=== PATIENT | male | born 1965 | race Caucasian/White ===

== ENCOUNTER 2020-09-25 12:43 | Emergency (ER) | payer BC ==
[2020-09-25] MEDS ORDERED: Lidocaine 1% with EPINEPHrine 1:100,000 50 ML MDV SUBCUT STA (13:19)
[2020-09-25] MEDS ORDERED: Diphtheria,Pertussis(Acell),Tetanus Vaccine 0.5 ML Syringe IM ONE (13:19)
[2020-09-25] MEDS ORDERED: Bacitracin Oint 1 GM U/D Packet TOP ONE (13:19)
--- NOTE | 2020-09-25 13:25 | EDM.PDOC ---
ED HPI GENERAL MEDICAL PROBLEM - General Chief Complaint: Laceration Stated Complaint: SORE ON LEG Time Seen by Provider: 09/25/20 13:08 Source of Information: Reports: Patient, Family, RN Notes Reviewed History Limitations: Reports: No Limitations - History of Present Illness INITIAL COMMENTS - FREE TEXT/NARRATIVE: 55-year-old gentleman presents emergency department day with a laceration to his right lower extremity he injured himself when he had a piece of equipment in the garage no functional complaints - Related Data Allergies Allergy/AdvReac Type Severity Reaction Status Date / Time No Known Allergies Allergy Verified 09/25/20 13:10 Home Meds: Home Meds Albuterol Sulfate [Albuterol Sulfate Hfa] 2 puff INH Q4HR 09/25/20 [History] Fluticasone/Salmeterol [Advair 500-50] 1 puff INH DAILY 09/25/20 [History] Gabapentin [Neurontin] 1 tab PO BEDTIME 09/25/20 [History] Past Medical History Respiratory History: Reports: Asthma Social & Family History - Tobacco Use Tobacco Use Status *Q: Never Tobacco User ED ROS GENERAL - Review of Systems Review Of Systems: See Below Skin: Reports: Wound ED EXAM, SKIN/RASH Exam: See Below Text/Narrative:: 4 cm laceration completely through the dermis anterior aspect of the gaviria on the right leg Exam Limited By: No Limitations General Appearance: Alert, WD/WN, No Apparent Distress ED SKIN PROCEDURES - Laceration/Wound Repair Right Leg Appearance: Subcutaneous, Irregular Distal NVT: Neuro & Vascular Intact, No Tendon Injury Anesthetic Type: Local Local Anesthesia - Lidocaine (Xylocaine): 1% with EPI Local Anesthetic Volume: 2cc Skin Prep: Saline Saline Irrigation (cc's): 40 Exploration/Debridement/Repair: Wound Explored, In a Bloodless Field, Explored to Base Closed with: Sutures Lac/Wound length In cm: 3 Suture Size: 4-0 # of Sutures: 8 Suture Type: Interrupted Suture Size: 4-0 # of Sutures: 1 Repaired with: Vicryl Sterile Dressing Applied: Nurse Tetanus Status Addressed: Yes Course - Vital Signs Last Recorded V/S: Last Vital Signs Temp 97 F 09/25/20 13:17 Pulse 73 09/25/20 13:17 Resp 15 09/25/20 13:17 BP 117/86 09/25/20 13:17 Pulse Ox 96 09/25/20 13:17 - Orders/Labs/Meds Orders: Active Orders 24 hr Category Date Time Status Vaccines to be Administered [RC] PER UNIT ROUTINE Care 09/25/20 13:20 Active Meds: Medications Discontinued Medications Generic Name Dose Route Start Last Admin Trade Name Pat PRN Reason Stop Dose Admin Bacitracin 1 dose 09/25/20 13:19 09/25/20 13:25 Bacitracin Oint 1 Gm U/D Packet TOP 09/25/20 13:20 1 dose ONETIME ONE Administration Diphtheria/Tetanus/Acell Pertussis 0.5 ml 09/25/20 13:19 09/25/20 13:25 Diphtheria,Pertussis(Acell),Tetanus Vaccine 0.5 Ml Syringe IM 09/25/20 13:20 0.5 ml .ONCE ONE Administration Lidocaine/Epinephrine 20 ml 09/25/20 13:19 09/25/20 13:25 Lidocaine 1% With Epinephrine 1:100,000 50 Ml Mdv SUBCUT 09/25/20 13:20 20 ml NOW STA Administration Departure - Departure Time of Disposition: 13:48 Disposition: Home, Self-Care 01 Condition: Fair Clinical Impression: Laceration of right lower leg Qualifiers: Encounter type: initial encounter Qualified Code(s): S81.811A - Laceration without foreign body, right lower leg, initial encounter - Discharge Information Instructions: Laceration Care, Adult Referrals: PCP,None [Primary Care Provider] - Forms: ED Department Discharge Additional Instructions: Use Tylenol or Motrin as needed for pain control, follow wound care instruction sheet, please return to the emergency department or follow-up with your primary care in 10 days for suture removal call return to the emergency department worsening of symptoms Sepsis Event Note (ED) - Evaluation Sepsis Screening Result: No Definite Risk - Focused Exam Vital Signs: Vital Signs Temp Pulse Resp BP Pulse Ox 09/25/20 13:17 97 F 73 15 117/86 96 09/25/20 13:07 97 F 73 15 117/86 96 - My Orders Last 24 Hours: My Active Orders 09/25/20 13:20 Vaccines to be Administered [RC] PER UNIT ROUTINE - Assessment/Plan Last 24 Hours: My Active Orders 09/25/20 13:20 Vaccines to be Administered [RC] PER UNIT ROUTINE Plan: Assessment Acuity = acute Site and laterality = 4 cm laceration right leg Etiology = trauma Manifestations = none Location of injury = Home Lab values = none Plan Suture removal in 10 days, follow-up with primary care return to the emergency department follow wound care instruction This note was dictated using [id number] voice recognition software please call with any questions on syntax or grammar.
== END 2020-09-25 14:11 | disposition home or self-care (01) ==
LOC: JP.ED 12:43
DX: S81.811A Laceration without foreign body, right lower leg, initial encounter (principal); J45.909 Unspecified asthma, uncomplicated; Z79.899 Other long term (current) drug therapy; Z23 Encounter for immunization; W26.8XXA Contact with other sharp object(s), not elsewhere classified, initial encounter; Y92.59 Other trade areas as the place of occurrence of the external cause
CPT/HCPCS: 12002; 90471; 90715; 99282-25